=== PATIENT | male | born 1995 | race Caucasian/White ===

== ENCOUNTER 2016-10-31 04:09 | Emergency (ER) | payer OTHER ==
--- NOTE | 2016-10-31 04:35 | EDPRACDOC ---
- General Information Stated Complaint: RASH Time Seen by Provider: 10/31/16 04:29 Home Medications: Home Medications Permethrin 60 gm TP DAILY #60 cream..g. 07/31/15 Hydroxyzine Pamoate [Vistaril] 25 mg PO Q6 PRN #30 capsule 10/31/16 Permethrin [Elimite] 60 gm TP WEEKLY #1 cream..g. 10/31/16 Prednisone [Sterapred DS 10 mg/12 day pack] 48 tab PO DIR #1 pack 10/31/16 Allergies/Adverse Reactions: Allergies Allergy/AdvReac Type Severity Reaction Status Date / Time No Known Allergies Allergy Verified 07/31/15 20:20 - History of Present Illness Onset: 1 WEEK HPI: RASH B/L FOREARMS STARTED A WEEK AGO ON RIGHT FOREARM A FEW SPOTS. VERY ITCHY. HAD SCABIES BEFORE, THAT COVERED ENTIRE BODY. THIS LIMITED TO FOREARMS. DID START NEW OLD SPICE SOAP ABOUT 2 WEEKS AGO. ED Past Medical History - History Reviewed Yes Nurses notes reviewed and agree except as marked EDM Review of Systems - Review of Systems ROS Negative Except as Marked: Yes All systems reviewed and were negative except as marked Constitutional: No Symptoms Reported Eyes: No Symptoms Reported Respiratory: No Symptoms Reported Cardiovascular: No Symptoms Reported Gastrointestinal: No Symptoms Reported Genitourinary: No Symptoms Reported - Physical Exam Constitutional: Alert (Awake), No apparent distress Oriented to: Time, Person, Place Last recorded Vital Signs: Oxygen Pulse Oxygen Saturation O2 Device Oxygen Flow Rate Fraction of Inspired Oxygen ( FIO2) - HEENT Head: Normal ( normocephalic) Eye Exam: Normal (PERRL, EOMI, Sclera white) Oropharynx: Normal (Pharynx:Moist without exudate,Gums-no swelling) Nose: No Symptoms Reported (septum midline) Neck: Normal (FROM, trachea at midline) - Respiratory/Cardiovascular Respiratory: Normal - CTA (BBS clear to auscultation without adventitious sounds ) Cardiovascular: Normal (RRR without murmur, gallop or rub) - Musculoskeletal Back: Normal (Non-Tender) Extremities: Normal (Normal tone, Pulses 2+ No cyanosis or edema, FROM) - Integumentary Skin: Warm, Dry, Other (B/L FOREARM PAPULAR RASH VOLAR.) Lymphatics: Normal (no adenopathy) - Neurologic Memory Impaired: Normal Motor Function: Normal (Normal tone, Pulses 2+ No cyanosis or edema, FROM) Cranial Nerve: Normal (CN II-X11 intact sensation, strength 5/5) Cerebellar: Normal Mood Description: Normal Perception: Normal Decision Time to Discharge: 04:39 - Departure Yes I personally saw and evaluated the patient. Disposition: Home Condition: Stable Final Diagnosis: Rash and nonspecific skin eruption Instructions: Scabies (ED) Education/Counseling Given To: Patient Education/Counseling Given Regarding: Diagnosis Referrals: Saurabh Fernando MD [Primary Care Provider] - Two Weeks Prescriptions: Hydroxyzine Pamoate [Vistaril] 25 mg PO Q6 PRN #30 capsule PRN Reason: Itching Permethrin [Elimite] 60 gm TP WEEKLY #1 cream..g. Prednisone [Sterapred DS 10 mg/12 day pack] 48 tab PO DIR #1 pack
[2016-10-31 04:37] VITALS: BP 119/68; PULSE 78
[2016-10-31] MEDS ORDERED: HydrOXYzine PAMOATE 25 MG/CAP CAP PO ONE (04:38)
[2016-10-31] MEDS ORDERED: PREDNISONE 20 MG TAB PO ONE (04:39)
[2016-10-31 04:44] VITALS: BMI 19.5
== END 2016-10-31 04:50 | disposition home or self-care (01) ==
LOC: ED 04:09
DX: R21 Rash and other nonspecific skin eruption (principal)
CPT/HCPCS: 99282; J3490